=== PATIENT | male | born 1990 | race Hispanic/Latino ===

== ENCOUNTER 2018-04-01 11:07 | Emergency (ER) | payer BC ==
[2018-04-01] MEDS ORDERED: DERMABOND SKIN ADHESIVE TOP ONE (12:05)
--- NOTE | 2018-04-01 12:09 | ER ---
Nurse's Notes [facility] Name: Jeramie Hall Age: 27 yrs Sex: Male : 1990 Arrival Date: 04/01/2018 Time: 11:08 Bed Treatment Private MD: None, None Diagnosis: Laceration without foreign body of nose Presentation: 04/01 11:34 Presenting complaint: Patient states: was working on car, channellocks hit him in left iw side of nose, small laceration noted to left outer crease of nostril. Transition of care: patient was not received from another setting of care. Complicating Factors: There are no complicating factors for this patient. Onset of symptoms was April 01, 2018. Risk Assessment: Do you want to hurt yourself or someone else? Patient reports no desire to harm self or others. Initial Sepsis Screen: Does the patient meet any 2 criteria? No. Patient's initial sepsis screen is negative. Does the patient have a suspected source of infection?. Care prior to arrival: None. 11:34 Method Of Arrival: Ambulatory iw 11:34 Acuity: VALERIANO 4 iw Triage Assessment: 12:00 General: Appears in no apparent distress. Behavior is calm, cooperative. iw Historical: - Allergies: 12:16 Iodine; iw - Home Meds: 12:16 None [Active]; iw - PMHx: 12:16 None; iw - PSHx: 12:16 None; iw - Immunization history:: Adult Immunizations. - Social history:: Smoking status: Patient/guardian denies using tobacco. - Ebola Screening: : Patient negative for fever greater than or equal to 101.5 degrees Fahrenheit, and additional compatible Ebola Virus Disease symptoms Patient denies exposure to infectious person Patient denies travel to an Ebola-affected area in the 21 days before illness onset No symptoms or risks identified at this time. Screenin:30 Abuse screen: Denies threats or abuse. Denies injuries from another. Nutritional iw screening: No deficits noted. Tuberculosis screening: No symptoms or risk factors identified. Fall Risk None identified. Assessment: 11:45 General: Appears in no apparent distress. comfortable. Pain: Complains of pain in left iw side of nose. Musculoskeletal: Range of motion: intact in all extremities. Injury Description: Laceration sustained to left side of nose is superficial, 0.5 to 2.5 cm long, is bleeding no active bleeding noted. Vital Signs: 11:36 BP 119 / 90; Pulse 67; Resp 16; Temp 98.6; Pulse Ox 99% on R/A; Weight 103.87 kg; iw Height 5 ft. 11 in. (180.34 cm); Pain 5/10; 11:36 Body Mass Index 31.94 (103.87 kg, 180.34 cm) iw ED Course: 11:08 Patient arrived in ED. mr 11:08 None, None is Private Physician. mr 11:34 Shahnaz Ochoa, RN is Primary Nurse. iw 11:36 Triage completed. iw 11:36 Arm band placed on. iw 11:44 Danette Jane FNP-C [facility]. kb 11:44 Ranjeet Gutierrez MD is Attending Physician. kb 11:45 Patient has correct armband on for positive identification. iw 12:00 Assist provider with laceration repair on left side of nose that was 2.5 cm. or less iw using Dermabond. Set up tray. Performed by Danette GILMAN Patient tolerated well. Patient did not have IV access during this emergency room visit. 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 Exp: iw 04/02/2019. Lot #: [id number]. } Route: IM; Site: left deltoid; Outcome: 12:06 Discharge ordered by . kb 12:29 Discharged to home ambulatory. iw 12:29 Condition: good 12:29 Discharge instructions given to patient, Instructed on discharge instructions, follow up and referral plans. Demonstrated understanding of instructions, follow-up care. 12:30 Patient left the ED. iw Signatures: Danette Jane FNP-C FNP-Ckb Rivera, Maria Shahnaz Ochoa, RN RN iw
--- NOTE | 2018-04-01 12:09 | EDPHYS ---
Physician Documentation [facility] Name: Jeramie Hall Age: 27 yrs Sex: Male : 1990 Arrival Date: 04/01/2018 Time: 11:08 Bed Treatment Private MD: None, None ED Physician Ranjeet Gutierrez HPI: 04/01 12:03 This 27 yrs old Male presents to ER via Ambulatory with complaints of kb Laceration To Nose. 12:03 The patient has a laceration related to: working on car and channel locks slipped kb hitting him in the face occurred outdoors, and there are no complicating factors. The injury was accidental. The laceration(s) is(are) located on the left side of nose. Onset: The symptoms/episode began/occurred just prior to arrival. Associated signs and symptoms: The patient has no apparent associated signs or symptoms. The patient has not experienced similar symptoms in the past. The patient has not recently seen a physician. Historical: - Allergies: 12:16 Iodine; iw - Home Meds: 12:16 None [Active]; iw - PMHx: 12:16 None; iw - PSHx: 12:16 None; iw - Immunization history:: Adult Immunizations. - Social history:: Smoking status: Patient/guardian denies using tobacco. - Ebola Screening: : Patient negative for fever greater than or equal to 101.5 degrees Fahrenheit, and additional compatible Ebola Virus Disease symptoms Patient denies exposure to infectious person Patient denies travel to an Ebola-affected area in the 21 days before illness onset No symptoms or risks identified at this time. ROS: 12:03 Constitutional: Negative for fever, chills, and weight loss, Cardiovascular: Negative kb for chest pain, palpitations, and edema, Respiratory: Negative for shortness of breath, cough, wheezing, and pleuritic chest pain, Abdomen/GI: Negative for abdominal pain, nausea, vomiting, diarrhea, and constipation, MS/Extremity: Negative for injury and deformity, Neuro: Negative for headache, weakness, numbness, tingling, and seizure. 12:03 Skin: Positive for laceration(s), of the left side of nose. Exam: 12:03 Constitutional: This is a well developed, well nourished patient who is awake, alert, kb and in no acute distress. Chest/axilla: Normal chest wall appearance and motion. Nontender with no deformity. No lesions are appreciated. Cardiovascular: Regular rate and rhythm with a normal S1 and S2. No gallops, murmurs, or rubs. Normal PMI, no JVD. No pulse deficits. Respiratory: Lungs have equal breath sounds bilaterally, clear to auscultation and percussion. No rales, rhonchi or wheezes noted. No increased work of breathing, no retractions or nasal flaring. Abdomen/GI: Soft, non-tender, with normal bowel sounds. No distension or tympany. No guarding or rebound. No evidence of tenderness throughout. MS/ Extremity: Pulses equal, no cyanosis. Neurovascular intact. Full, normal range of motion. Neuro: Awake and alert, GCS 15, oriented to person, place, time, and situation. Cranial nerves II-XII grossly intact. Motor strength 5/5 in all extremities. Sensory grossly intact. Cerebellar exam normal. Normal gait. 12:03 Head/face: Noted is a laceration(s), that is superficial, that is linear, 1 cm(s), of the left side of nose. Vital Signs: 11:36 BP 119 / 90; Pulse 67; Resp 16; Temp 98.6; Pulse Ox 99% on R/A; Weight 103.87 kg; iw Height 5 ft. 11 in. (180.34 cm); Pain 5/10; 11:36 Body Mass Index 31.94 (103.87 kg, 180.34 cm) iw Laceration: 12:05 Wound Repair of 1cm ( 0.4in ) subcutaneous laceration to left side of nose. Linear kb shaped.. Distal neuro/vascular/tendon intact. Wound prep: Moderate cleansing, Wound irrigation. Skin closed with thin layer Adhesive skin closure using Dermabond. Patient tolerated well. MDM: 11:45 Patient medically screened. kb 12:04 Data reviewed: vital signs, nurses notes. Data interpreted: Pulse oximetry: on room air kb is 99 %. Interpretation: normal. Counseling: I had a detailed discussion with the patient and/or guardian regarding: the historical points, exam findings, and any diagnostic results supporting the discharge/admit diagnosis, the need for outpatient follow up, a family practitioner, to return to the emergency department if symptoms worsen or persist or if there are any questions or concerns that arise at home. 12:05 ED course: laceration well approximated, closed, no bleeding. Dermabond placed by ina Dean [employer] ([employer] student). 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 Exp: iw 04/02/2019. Lot #: [id number]. } Route: IM; Site: left deltoid; Disposition: 14:25 Co-signature as Attending Physician, Ranjeet Gutierrez MD. rn Disposition: 04/01/18 12:06 Discharged to Home. Impression: Laceration without foreign body of nose. - Condition is Stable. - Discharge Instructions: Nonsutured Laceration Care. - Medication Reconciliation Form, Thank You Letter, Antibiotic Education, Prescription Opioid Use form. - Follow up: Emergency Department; When: As needed; Reason: Worsening of condition. Follow up: Private Physician; When: 2 - 3 days; Reason: Recheck today's complaints, Continuance of care, Re-evaluation by your physician. Signatures: Danette Jane, CHANGE CONSULTANT-C CHANGE CONSULTANT-Ckb Shahnaz Ochoa, RN RN Ranjeet Stafford MD MD internal control analyst: (The following items were deleted from the chart) 12:30 12:06 04/01/2018 12:06 Discharged to Home. Impression: Laceration without foreign body iw of nose. Condition is Stable. Forms are Medication Reconciliation Form, Thank You Letter, Antibiotic Education, Prescription Opioid Use. Follow up: Emergency Department; When: As needed; Reason: Worsening of condition. Follow up: Private Physician; When: 2 - 3 days; Reason: Recheck today's complaints, Continuance of care, Re-evaluation by your physician. kb
[2018-04-01] MEDS ORDERED: TETANUS & DIPHTHERIA TOX,ADULT 0.5 ML VIAL ONE (12:16)
[2018-04-01 12:35] VITALS: BP 119/90; TEMP 98.6; O2SAT 99
== END 2018-04-01 12:30 | disposition home or self-care (01) ==
LOC: ER 11:07
PROC: 09QKXZZ Repair Nasal Mucosa and Soft Tissue, External Approach (ICD-10-PCS; principal; 2018-04-01)
DX: S01.21XA Laceration without foreign body of nose, initial encounter (principal); W45.8XXA Other foreign body or object entering through skin, initial encounter; W27.8XXA Contact with other nonpowered hand tool, initial encounter; W22.8XXA Striking against or struck by other objects, initial encounter; Y93.89 Activity, other specified; Y92.015 Private garage of single-family (private) house as the place of occurrence of the external cause
CPT/HCPCS: 90714; 99283

== ENCOUNTER 2019-02-20 17:51 | Inpatient (IN) | payer BC ==
[2019-02-20 18:49] LABS: Basophils % 0.4 % (0-1.3); Hematocrit 44.6 % (39.6-49.0); Lymphocytes % 41.5 % (15.3-44.8); MPV 8.9 fL (7.6-11.3); RBC Red Blood Cell Count 5.34 M/uL (4.33-5.43)
[2019-02-20 19:02] LABS: ALT/SGPT 60 U/L (12-78); AST/SGOT 27 U/L (15-37); Albumin 3.9 g/dL (3.4-5.0); Alkaline Phosphatase 66 U/L (45-117); BUN Blood Urea Nitrogen 13 mg/dL (7-18); Bicarbonate 28 mmol/L (21-32); Bilirubin Direct < 0.1 mg/dL (0-0.2); Bilirubin Total 0.3 mg/dL (0.2-1.0); Glucose Level 84 mg/dL (74-106); Lipase 99 U/L (73-393); Potassium 3.6 mmol/L (3.5-5.1); Sodium Level 141 mmol/L (136-145)
--- NOTE | 2019-02-20 19:57 | RAD REPORT ---
EXAM DESCRIPTION: CT - Abdomen Pelvis Wo Contrast - 02/20/2019 7:45 pm CLINICAL HISTORY: Abdominal pain. right lower abdominal pain COMPARISON: No comparisons TECHNIQUE: CT imaging of the abdomen and pelvis was performed without contrast. Solid organ and vasc ular assessment is limited due to lack of IV contrast. All CT scans are performed using dose optimization technique as appropriate and may include automated exposure control or mA/KV adjustment according to patient size. FINDINGS: The lower lung monroe are clear. Fatty liver pattern is present.The spleen, pancreas and adrenal glands are normal. Hyperdense and hyp odense cysts are present involving the kidneys, larger on the right. No hydronephrosis. No bowel obstruction, free air, free fluid or abscess. The appendix is mildly prominent in size ghassan uring 9-10 mm with slight adjacent reticulation of the periappendiceal fat. The osseous structures are within normal limits. IMPRESSION: Early acute appendicitis is suspected. Prominent fatty liver. A limited non-contrast examination was performed as detailed.
--- NOTE | 2019-02-20 20:25 | EDPHYS ---
Physician Documentation [facility] Name: Jeramie Hall Age: 28 yrs Sex: Male : 1990 Arrival Date: 02/20/2019 Time: 17:55 Bed 23 Private MD: ED Physician Kei Luna HPI: 02/20 18:09 This 28 yrs old Male presents to ER via Ambulatory with complaints of jmm Abdominal Pain. 18:09 The patient presents with abdominal pain in the lower abdomen. Onset: The jmm symptoms/episode began/occurred gradually, 1 week(s) ago. The symptoms do not radiate. Associated signs and symptoms: Pertinent positives: diarrhea. The symptoms are described as achy. This is a 28 year old male with no chronic medical conditions that presents to the ED with complaints of right lower abdominal pain, diarrhea ongoing for the past week worsening today. Patient also complains of fever throughout the past week. Denies vomiting. . Historical: - Allergies: 17:58 Iodine; la1 - PMHx: 17:58 None; la1 - Immunization history:: Adult Immunizations up to date. - Social history:: Smoking status: Patient uses tobacco products, smokes one pack cigarettes per day. - Ebola Screening: : No symptoms or risks identified at this time. ROS: 18:09 Cardiovascular: Negative for chest pain, palpitations, and edema, Respiratory: Negative jmm for shortness of breath, cough, wheezing, and pleuritic chest pain. 18:09 Constitutional: Positive for body aches, fever. 18:09 Abdomen/GI: Positive for abdominal pain, diarrhea. 18:09 All other systems are negative. Exam: 18:09 Head/Face: atraumatic. Eyes: EOMI, no conjunctival erythema appreciated ENT: Moist jmm Mucus Membranes Neck: Trachea midline, Supple Chest/axilla: Normal chest wall appearance and motion. Cardiovascular: Regular rate and rhythm. No edema appreciated Respiratory: Normal respirations, no respiratory distress appreciated 18:09 Back: Normal ROM Skin: General appearance color normal MS/ Extremity: Moves all extremities, no obvious deformities appreciated, no edema noted to the lower extremities Neuro: Awake and alert, normal gait Psych: Behavior is normal, Mood is normal, Patient is cooperative and pleasant 18:09 Constitutional: The patient appears in no acute distress, alert, awake. 18:09 Abdomen/GI: Inspection: abdomen appears normal, Bowel sounds: normal, Palpation: soft, moderate abdominal tenderness, in the right lower quadrant. Vital Signs: 17:58 BP 151 / 100; Pulse 73; Resp 16; Temp 97.4; Pulse Ox 98% on R/A; Weight 113.4 kg; la1 Height 5 ft. 11 in. (180.34 cm); 19:15 BP 145 / 96; Pulse 72; Resp 18; Pulse Ox 99% ; aj1 21:12 BP 133 / 93; Pulse 73; Resp 18; Pulse Ox 100% on R/A; aj1 17:58 Body Mass Index 34.87 (113.40 kg, 180.34 cm) la1 MDM: 18:09 Patient medically screened. [facility] 20:09 Data reviewed: vital signs, nurses notes. Counseling: I had a detailed discussion with ramila the patient and/or guardian regarding: the historical points, exam findings, and any diagnostic results supporting the discharge/admit diagnosis, the need for further work-up and treatment in the hospital, to return to the emergency department if symptoms worsen or persist or if there are any questions or concerns that arise at home. ED course: I discussed the patient with Dr. Mims whom accepted the patient for admission. . 02/20 18:18 Order name: Basic Metabolic Panel; Complete Time: 19:03 [facility] 02/20 18:18 Order name: CBC with Diff; Complete Time: 18:56 [facility] 02/20 18:18 Order name: Creatinine for Radiology; Complete Time: 19:03 [facility] 02/20 18:18 Order name: Hepatic Function; Complete Time: 19:03 [facility] 02/20 18:18 Order name: Lipase; Complete Time: 19:03 [facility] 02/20 20:33 Order name: Basic Metabolic Panel [facility] 02/20 18:18 Order name: CT Abd/Pelvis - Without Cont (PO Contrast Only); Complete Time: 19:58 [facility] 02/20 20:33 Order name: Basic Metabolic Panel [facility] 02/20 20:33 Order name: CBC with Automated Diff [facility] 02/20 20:33 Order name: CBC with Automated Diff [facility] 02/20 20:33 Order name: Lipase [facility] 02/20 20:33 Order name: Lipase [facility] 02/20 20:33 Order name: Liver (Hepatic) Function [facility] 02/20 20:33 Order name: Liver (Hepatic) Function [facility] 02/20 18:18 Order name: IV Saline Lock; Complete Time: 19:04 [facility] 02/20 18:18 Order name: Labs collected and sent; Complete Time: 19:04 [facility] 02/20 20:33 Order name: NPO EDNC Administered Medications: 20:57 Drug: Flagyl 500 mg Volume: 100 ml; Route: IVPB; Rate: 200 ml/hr; Infused Over: 30 aj1 mins; Site: right antecubital; 21:49 Follow up: IV Status: Completed infusion; IV Intake: 200ml [facility] 20:58 Drug: Mefoxin 1 grams Route: IVPB; Infused Over: 30 mins; Site: right antecubital; aj1 21:49 Follow up: IV Status: Completed infusion; IV Intake: 10ml ; Given SIVP per hospital [facility] protocol Disposition: 02/20/19 20:24 Hospitalization ordered by Pedro Mims for Inpatient Admission. Preliminary diagnosis is Acute appendicitis. - Bed requested for Telemetry/MedSurg (Inpatient). - Status is Inpatient Admission. aa1 - Condition is Stable. - Problem is new. - Symptoms are unchanged. UTI on Admission? No Addendum: 02/22/2019 09:57 Co-signature as Attending Physician, Kei Luna MD I agree with the assessment and c bucio plan of care. Signatures: Dispatcher [employer] Rolanda Avalos RN RN aj1 Cristina Álvarez RN RN aa1 Kei Luna MD MD cha Mickail, Joel, PA PA [facility] Fransico Urrutia RN RN la1 Elly Ross RN RN cg Corrections: (The following items were deleted from the chart) 02/20 20:57 20:24 Hospitalization Ordered by Pedro Mims MD for Inpatient Admission. Preliminary cg diagnosis is Acute appendicitis. Bed requested for Telemetry/MedSurg (Inpatient). Status is Inpatient Admission. Condition is Stable. Problem is new. Symptoms are unchanged. UTI on Admission? No. [facility] 22:20 20:57 02/20/2019 20:24 Hospitalization Ordered by Pedro Mims MD for Inpatient aa1 Admission. Preliminary diagnosis is Acute appendicitis. Bed requested for Telemetry/MedSurg (Inpatient). Status is Inpatient Admission. Condition is Stable. Problem is new. Symptoms are unchanged. UTI on Admission? No. cg
--- NOTE | 2019-02-20 20:25 | ER ---
Nurse's Notes [facility] Name: Jeramie Hall Age: 28 yrs Sex: Male : 1990 Arrival Date: 02/20/2019 Time: 17:55 Bed 23 Private MD: Diagnosis: Acute appendicitis Presentation: 02/20 17:57 Presenting complaint: Patient states: Abd pain and diarrhea for about a week, pain la1 worse when laying down. denies vomiting. Transition of care: patient was not received from another setting of care. Onset of symptoms was February 20, 2019. Risk Assessment: Do you want to hurt yourself or someone else? Patient reports no desire to harm self or others. Initial Sepsis Screen: Does the patient meet any 2 criteria? No. Patient's initial sepsis screen is negative. Does the patient have a suspected source of infection? No. Patient's initial sepsis screen is negative. Care prior to arrival: None. 17:57 Method Of Arrival: Ambulatory la1 17:57 Acuity: VALERIANO 3 la1 Historical: - Allergies: 17:58 Iodine; la1 - PMHx: 17:58 None; la1 - Immunization history:: Adult Immunizations up to date. - Social history:: Smoking status: Patient uses tobacco products, smokes one pack cigarettes per day. - Ebola Screening: : No symptoms or risks identified at this time. Screenin:15 Abuse screen: Denies threats or abuse. Denies injuries from another. Nutritional aj1 screening: No deficits noted. Tuberculosis screening: No symptoms or risk factors identified. 21:11 Fall Risk None identified. aj1 Assessment: 18:15 General: Appears in no apparent distress. comfortable, Behavior is calm, cooperative, aj1 appropriate for age. Pain: Complains of pain in abdomen Pain does not radiate. Neuro: Level of Consciousness is awake, alert, obeys commands, Oriented to person, place, time, situation. Cardiovascular: Patient's skin is warm and dry. Respiratory: Airway is patent Respiratory effort is even, unlabored, Respiratory pattern is regular, symmetrical. GI: Abdomen is flat, Bowel sounds present X 4 quads. Abd is soft X 4 quads Abdomen is tender to palpation in right lower quadrant Reports diarrhea, Patient currently denies nausea, vomiting. : No signs and/or symptoms were reported regarding the genitourinary system. EENT: No signs and/or symptoms were reported regarding the EENT system. Derm: No signs and/or symptoms reported regarding the dermatologic system. Skin is pink, warm \T\ dry. normal. Musculoskeletal: No signs and/or symptoms reported regarding the musculoskeletal system. Circulation, motion, and sensation intact. 19:15 Reassessment: Patient appears in no apparent distress at this time. No changes from aj1 previously documented assessment. Patient and/or family updated on plan of care and expected duration. Pain level reassessed. Patient is alert, oriented x 3, equal unlabored respirations, skin warm/dry/pink. 20:15 Reassessment: Patient and/or family updated on plan of care and expected duration. Pain aj1 level reassessed. General: Appears in no apparent distress. comfortable, Behavior is calm, cooperative, appropriate for age. Neuro: Level of Consciousness is awake, alert, obeys commands, Oriented to person, place, time, situation. Cardiovascular: Patient's skin is warm and dry. Respiratory: Airway is patent Respiratory effort is even, unlabored, Respiratory pattern is regular, symmetrical. Derm: No signs and/or symptoms reported regarding the dermatologic system. Skin is pink, warm \T\ dry. normal. Musculoskeletal: No signs and/or symptoms reported regarding the musculoskeletal system. Circulation, motion, and sensation intact. 21:11 Reassessment: Patient appears in no apparent distress at this time. No changes from aj1 previously documented assessment. Patient and/or family updated on plan of care and expected duration. Pain level reassessed. Patient is alert, oriented x 3, equal unlabored respirations, skin warm/dry/pink. Vital Signs: 17:58 BP 151 / 100; Pulse 73; Resp 16; Temp 97.4; Pulse Ox 98% on R/A; Weight 113.4 kg; la1 Height 5 ft. 11 in. (180.34 cm); 19:15 BP 145 / 96; Pulse 72; Resp 18; Pulse Ox 99% ; aj1 21:12 BP 133 / 93; Pulse 73; Resp 18; Pulse Ox 100% on R/A; aj1 17:58 Body Mass Index 34.87 (113.40 kg, 180.34 cm) la1 ED Course: 17:55 Patient arrived in ED. as 17:55 Romeo Jack PA is PHCP. jmm 17:55 Kei Luna MD is Attending Physician. jmm 17:58 Triage completed. la1 17:59 Arm band placed on left wrist. la1 18:15 No provider procedures requiring assistance completed. aj1 18:30 Rolanda Bazzi, RN is Primary Nurse. aj1 18:30 Initial lab(s) drawn, by me, sent to lab. Inserted saline lock: 20 gauge in right jp3 antecubital area, using aseptic technique. Blood collected. 18:32 Patient maintains SpO2 saturation greater than 95% on room air. jp3 18:33 Bed in low position. Call light in reach. Side rails up X 1. Verbal reassurance given. jp3 Pulse ox on. NIBP on. 19:44 CT completed. Patient tolerated procedure well. Patient moved back from CT. 3 19:47 CT Abd/Pelvis - Without Cont (PO Contrast Only) In Process Unspecified. EDMS 20:24 Pedro Mims MD is Hospitalizing Provider. jmm 21:48 Patient admitted, IV remains in place. aj1 Administered Medications: 20:57 Drug: Flagyl 500 mg Volume: 100 ml; Route: IVPB; Rate: 200 ml/hr; Infused Over: 30 aj1 mins; Site: right antecubital; 21:49 Follow up: IV Status: Completed infusion; IV Intake: 200ml aj 20:58 Drug: Mefoxin 1 grams Route: IVPB; Infused Over: 30 mins; Site: right antecubital; aj1 21:49 Follow up: IV Status: Completed infusion; IV Intake: 10ml ; Given SIVP per hospital [facility] protocol Intake: 21:49 IV: 10ml; Total: 10ml. aj1 21:49 IV: 200ml; Total: 210ml. aj1 Outcome: 20:24 Decision to Hospitalize by Provider. jmm 21:48 Admitted to Tele accompanied by tech, via wheelchair, with chart, Report called to ajRanjit Carbajal RN on 4th floor 21:48 Condition: good 21:48 Discharge instructions given to patient, Instructed on the need for admit, Demonstrated understanding of instructions. 22:20 Patient left the ED. aa1 Signatures: Dispatcher [employer] EDMS Rolanda Bazzi, ANNIE RN aj1 Cristina Álvarez RN RN aa1 Mickail, Romeo, Christy Ortiz Lee, RN RN la1 Shahrzad Dickey mw3 Gregorio Garcia jp3
[2019-02-20] MEDS ORDERED: MORPHINE 4 MG/ML SYR IV PRN (20:27)
[2019-02-20] MEDS ORDERED: ACETAMINOPHEN 500 MG TAB PO PRN (20:27)
[2019-02-20] MEDS ORDERED: ONDANSETRON 4 MG/2 ML VIAL IV PRN (20:27)
[2019-02-20] MEDS ORDERED: CEFOXITIN/SWI 1gm 1 GM/10 ML SYR ONE (20:46)
[2019-02-20 22:19] VITALS: BMI 36.3
[2019-02-20] MEDS: D5 0.45 NS 1,000 ML IV SCH (22:30)
[2019-02-20] MEDS ORDERED: CEFOXITIN SODIUM 1 GM/VIAL ONE (23:45)
[2019-02-21] MEDS: CEFOXITIN SODIUM 1 GM/VIAL IVPB SCH ×2 (00:14→05:00)
[2019-02-21] MEDS: METRONIDAZOLE 500mg IVPB 500 MG/100 ML BAG IV SCH ×3 (00:14→17:46)
[2019-02-21] MEDS: D5 0.45 NS 1,000 ML IV SCH ×5 (05:00→21:00)
[2019-02-21 05:59] LABS: Absolute Lymphocytes (CBC) 2.8 K/uL (0.7-4.9); Basophils % 0.6 % (0-1.3); Hematocrit 45.1 % (39.6-49.0); Lymphocytes % 36.3 % (15.3-44.8); RBC Red Blood Cell Count 5.35 M/uL (4.33-5.43)
[2019-02-21 06:20] LABS: Albumin 3.9 g/dL (3.4-5.0); Bilirubin Direct 0.1 mg/dL (0-0.2); Bilirubin Total 0.6 mg/dL (0.2-1.0); Potassium 3.8 mmol/L (3.5-5.1); Protein, Total 7.9 g/dL (6.4-8.2)
[2019-02-21] MEDS ORDERED: Ringers Lactate 1,000 ML IV ONE (06:34)
[2019-02-21] MEDS ORDERED: FENTANYL CITR 100 MCG/2 ML ONE (06:53)
[2019-02-21] MEDS ORDERED: PROPOFOL 200 MG/20 ML VIAL IV ONE (06:53)
[2019-02-21] MEDS ORDERED: ROCURONIUM 50 MG/5 ML VIAL IV ONE (06:53)
[2019-02-21] MEDS ORDERED: LIDOCAINE 2% MPF 5 ML VIAL ONE (06:53)
[2019-02-21] MEDS ORDERED: KETOROLAC 30 MG/ML INJ ONE (07:09)
[2019-02-21] MEDS ORDERED: ONDANSETRON 4 MG/2 ML VIAL ONE (07:09)
[2019-02-21] MEDS ORDERED: dexAMETHasone 10 MG/ML VIAL ONE (07:09)
[2019-02-21] MEDS ORDERED: GLYCOPYRROLATE 0.2 MG/ML SYR ONE ×2 (07:21→07:29)
[2019-02-21] MEDS ORDERED: NEOSTIGMINE 1 MG/ML -10 ML VIAL ONE (07:29)
--- NOTE | 2019-02-21 07:41 | PREOPHP ---
Date of Admission: 02/20/2019 Chief Complaint: Abdominal pain. History Of Present Illness: Patient is a 28-year-old gentleman who has had progressive right lower a bdominal pain since Friday associated with diarrhea. No nausea or vomiting. No constipation. No b lood in his stool. No dysuria or hematuria. No sore throat, runny nose, cough, headaches or dizzines s. No fever or chills recently but beginning of this symptomology he did have some low-grade tempera ture and no anorexia. Review of Systems: Otherwise unremarkable. Past Medical History: Negative. Past Surgical History: Negative. Allergies: NONE. Social History: He smokes occasionally when he is having a few drinks but it was only on occasions. He was counseled appropriately. Family History: Noncontributory. Physical Examination: Vital Signs: Stable. He is afebrile. General: He is awake, alert, and oriented x3. Head and neck: Cranial nerves 2 through 12 grossly within normal limits. No neck masses. No JVD. Throat clear. Neck is supple. Chest: Clear. Heart: S1 and S2. Abdomen: Soft, nondistended. Positive right lower quadrant tenderness with minimal rebound. No rig idity or guarding. Extremity: Adequately perfused. Nontender. Neuro: Nonfocal. Laboratory Data: White count is normal. Electrolytes reviewed CT reviewed. Patient has a dilated a ppendix with very appendiceal fat with inflammation consistent with early acute appendicitis. Assessment: Acute appendicitis. Plan: Admit n.p.o., IV fluid, IV antibiotic, to the OR for lap appy, possible open. The patient und erstands the risks, benefits, and alternatives and agrees to procedure. /MODL Voice ID: [id number]
--- NOTE | 2019-02-21 07:41 | P.OP ---
Preoperative diagnosis: Acute Appendicitis Postoperative diagnosis: same Primary procedure: Lap Appy Anesthesia: General Estimated blood loss: min Specimen: Appy Findings: as above Complications: None Transferred to: Recovery Room Condition: Good
[2019-02-21] MEDS: HYDROMORPHONE HCL 1 MG/ML INJ IV PRN ×4 (08:15→21:54)
[2019-02-21] MEDS: HYDROCODONE/APAP 7.5/325 MG TAB PO PRN ×3 (10:50→20:04)
[2019-02-21] MEDS: CEFOXITIN/SWI 1gm 1 GM/10 ML SYR IV SCH ×2 (14:19→17:46)
[2019-02-21] MEDS: ONDANSETRON 4 MG/2 ML VIAL IV PRN ×2 (16:45→22:30)
--- NOTE | 2019-02-21 18:58 | OP ---
Date of Procedure: 02/21/2019 Surgeon: Pedro Mims MD Preoperative Diagnosis: Acute appendicitis. Postoperative Diagnosis: Acute appendicitis. Procedure: Laparoscopic appendectomy. Estimated Blood Loss: Minimal. Specimen: Appendix. Findings: As above. Anesthesia: General. Complications: None. Disposition: Patient tolerated the procedure in stable condition and taken to Recovery in good gener al condition. Procedure In Detail: Patient was brought to the OR and placed in supine position. General anesthesi a was begun. Patient was prepped and draped in usual sterile fashion. Marcaine 0.5% was infiltrated locally. A 15-blade was used to make a 1 cm supraumbilical midline incision. Subcutaneous tissue w as divided. Fascia was identified and divided. A #1 Vicryl stay suture was placed. Peritoneal cavi ty was entered with blunt dissection. A 12-mm trocar was placed into the peritoneal cavity direct vi jyoti. Pneumoperitoneum was established. Then, two 5 mm trocars were placed, 1 in the suprapubic reg ion and 1 in the left lower quadrant. Laparoscopy revealed acute inflammation of the distal half of the appendix. Base of the appendix and mesoappendix were clearly identified. Endo-CHETAN stapling dayne ce was used to divide both structures and the appendix was easily removed via EndoCatch bag. Right l ower quadrant was examined. No evidence of bleeding or bowel injury appreciated. Subsequently, all trocars were removed under direct vision. Stay sutures were tied to each other to reapproximate the fascial defect. Subcutaneous wounds were irrigated. Bleeding was controlled with cautery. A 3-0 ch romic used to approximate the subcutaneous tissue and staple was used to close the skin. Sterile franco ssing was applied. Patient was awakened and taken to Recovery in good general condition. /MODL Voice ID: [id number] Report ID: [id number]
[2019-02-22] MEDS: CEFOXITIN/SWI 1gm 1 GM/10 ML SYR IV SCH ×2 (00:15→05:03)
[2019-02-22] MEDS: METRONIDAZOLE 500mg IVPB 500 MG/100 ML BAG IV SCH ×2 (00:15→08:53)
[2019-02-22 04:15] LABS: Absolute Lymphocytes (CBC) 1.3 K/uL (0.7-4.9); Basophils % 0.1 % (0-1.3); Hematocrit 40.2 % (39.6-49.0); Lymphocytes % 12.1 % (15.3-44.8); MPV 8.9 fL (7.6-11.3); RBC Red Blood Cell Count 4.77 M/uL (4.33-5.43)
[2019-02-22] MEDS: D5 0.45 NS 1,000 ML IV SCH (04:22)
[2019-02-22] MEDS: HYDROCODONE/APAP 7.5/325 MG TAB PO PRN (08:53)
[2019-02-22 08:55] VITALS: BP 129/77; TEMP 97.1
[2019-02-22 11:14] VITALS: O2SAT 97
--- NOTE | 2019-02-23 08:01 | DS ---
Date of Discharge: 02/22/2019 Admitting Diagnosis: Acute appendicitis. Discharge Diagnosis: Acute appendicitis. Procedure Performed: Laparoscopic appendectomy. Hospital Course: Patient is a 28-year-old gentleman, who underwent the aforementioned procedure. Po stoperatively, he is tolerating diet, ambulating pain controlled on p.o. pain medication afebrile. T herefore patient will be discharged to home. Disposition: Home. Condition: Stable. Discharge Instructions: Resume home medications and diet. Activity as tolerated. No heavy lifting. Remove outer dressing in a.m. Shower. Keep wound clean and dry. Follow up in my office in a week . Call for appointment. Tylenol No. 3 one tablet p.o. q.4 p.r.n. pain. Augmentin 875 mg p.o. b.i.d . BLAIR/KAMLESH Voice ID: [id number] Report ID: [id number]
== END 2019-02-22 11:28 | disposition home or self-care (01) | DRG 343 ==
LOC: ER 17:51 → ERHOLD 20:38 → 4TH 21:46
PROVIDERS: ADMIT Surgery; ATTEND Surgery
PROC: 0DTJ4ZZ Resection of Appendix, Percutaneous Endoscopic Approach (ICD-10-PCS; principal; 2019-02-21 07:00)
DX: K35.80 Unspecified acute appendicitis (principal)
CPT/HCPCS: 36415; 74176; 80048; 80076; 83690; 85025; 88304; 96365; 96368; 99285; J0694; J1100; J1170; J2405; J2704; J2710; J3010